=== PATIENT | male | born 2005 | race Asian ===

== ENCOUNTER 2024-12-15 10:47 | Emergency (ER) | payer OTHER ==
[~2024-12-15] VITALS: Ht 167.6 cm; Wt 73.5 kg
[2024-12-15 12:44] VITALS: BP 120/59; TEMP 96; O2SAT 100
== END 2024-12-15 12:45 | disposition home or self-care (01) ==
LOC: M ED 10:47
DX: S93.402A Sprain of unspecified ligament of left ankle, initial encounter (principal); X50.0XXA Overexertion from strenuous movement or load, initial encounter; Y92.89 Other specified places as the place of occurrence of the external cause; Y93.89 Activity, other specified; Y99.1 Military activity

== ENCOUNTER 2025-07-09 07:45 | Emergency (ER) | payer OTHER ==
[~2025-07-09] VITALS: Ht 167.6 cm; Wt 71.1 kg
[2025-07-09] MEDS ORDERED: BENZ200C70 PO (10:30)
[2025-07-09] MEDS ORDERED: ONDA-282 PO (10:30)
[2025-07-09] MEDS ORDERED: VENTAER INH (10:30)
[2025-07-09 10:45] VITALS: BP 119/77; TEMP 96.8; O2SAT 98
== END 2025-07-09 10:45 | disposition home or self-care (01) ==
LOC: M ED 07:45
DX: J06.9 Acute upper respiratory infection, unspecified (principal); B34.8 Other viral infections of unspecified site; Z79.52 Long term (current) use of systemic steroids; Z79.899 Other long term (current) drug therapy